=== PATIENT | female | born 1970 | race American Indian/Alaskan Native ===

== ENCOUNTER 2022-01-15 14:29 | Outpatient (CLI) | payer OTHER ==
--- NOTE | 2022-01-15 15:32 | XRay Report ---
LUMBAR SPINE 3 VIEWS INDICATION: Injury to spine. COMPARISON: None. IMPRESSION: Normal alignment. No significant discogenic DJD or facet arthropathy. No acute osseous or soft tissue abnormality. RIGHT ELBOW 2 VIEWS INDICATION: INJURY TO ELBOW. COMPARISON: None. IMPRESSION: No acute osseous or soft tissue abnormality. No significant DJD. RIGHT KNEE 2 VIEWS INDICATION: INJURY TO ELBOW. COMPARISON: None. IMPRESSION: No acute osseous or soft tissue abnormality. No significant DJD. Signer Name: Humberto Elmore Jr, MD Signed: 01/15/2022 3:28 PM Workstation Name: [id number]
== END 2022-01-15 14:30 | disposition home or self-care (01) ==
LOC: XRAY 14:29
PROVIDERS: ATTEND Internal Medicine
DX: S59.901A Unspecified injury of right elbow, initial encounter (principal); M25.561 Pain in right knee; M54.50 Low back pain, unspecified; X58.XXXA Exposure to other specified factors, initial encounter; Y93.89 Activity, other specified; Y92.89 Other specified places as the place of occurrence of the external cause; Y99.8 Other external cause status
CPT/HCPCS: 72100